=== PATIENT | female | born 1965 | race African-American/Black ===

== ENCOUNTER 2024-08-24 10:46 | Day surgery (SDC) | payer BC ==
[2024-08-24] VITALS (7 sets, daily range): BP systolic 107–117; BP diastolic 70–79; PULSE 57–71; RESP 12–18; TEMP 97.3
[2024-08-24 10:51] LABS: BASOPHILS # (AUTO) 0.08 K/uL (0.00-0.20); BASOPHILS % (AUTO) 1.4 % (0.0-5.0); EOSINOPHILS # (AUTO) 0.09 K/uL (0.00-0.70); EOSINOPHILS % (AUTO) 1.6 % (0.0-8.0); HEMATOCRIT 32.8 % (36-48); IMMATURE GRANULOCYTE ABSOLUTE 0.02 K/uL (0-1); LYMPHOCYTES # (AUTO) 2.1 K/uL (1.0-4.8); LYMPHOCYTES % (AUTO) 38.2 % (21.0-51.0); MEAN CORPUSCULAR HEMOGLOBIN 29.1 pg (27.0-33.0); MEAN CORPUSCULAR HGB CONC 33.8 g/dL (32.0-36.0); MEAN CORPUSCULAR VOLUME 85.9 fL (79-99); MONOCYTES # (AUTO) 0.3 K/uL (0.1-1.0); MONOCYTES % (AUTO) 4.8 % (3.0-13.0); NEUTROPHILS % (AUTO) 53.6 % (40.0-77.0); PLATELET COUNT (AUTO) 284 K/uL (130-400); RED BLOOD CELL COUNT(AUTO) 3.82 MIL/uL (4.00-5.50); RED CELL DISTRIBUTION WIDTH 14.1 % (11.0-15.5); WHITE BLOOD COUNT (AUTO) 5.6 K/uL (4.8-10.8)
[2024-08-24 11:00] LABS: INR 1.02 (0.85-1.15); PROTHROMBIN TIME 10.8 SEC (9.6-11.6)
[2024-08-24 11:02] LABS: PARTIAL THROMBOPLASTIN TIME 26.8 SEC (26.3-35.5)
[2024-08-24] MEDS ORDERED: FENTanyl CITRate PF 50 MCG/1 ML 2ML VIAL ONE (12:12)
[2024-08-24] MEDS ORDERED: MIDAZOLAM HCL 1 MG/ML 2ML VIAL ONE ×2 (12:12→12:32)
--- NOTE | 2024-08-24 12:50 | NUR ---
CT GD RT ILIAC BONE MARROW BX TOLERATED PROCEDURE. PERFORMED BY DR MARINELLI. PUNCTURE SITE TO RT ILIAC. SPECIMEN REMOVED AND SENT TO LAB. END OF PROCEDURE AT 1240. DRESSING DRY AND INTACT. NO BLEEDING NOTED. REPORT GIVEN TO Nayana CASSIDY RN. TRANSPORTED TO DAY PT ROOM 9. A&O. DENIES PAIN.
--- NOTE | 2024-08-24 14:58 | NUR ---
Full and complete discharge instructions given to Patient and Family both verbally and in writing. Explained Bone marrow Biopsy procedure precautions and follow up. Discussed site care at length. Instructed to keep bandage on for 24 hours and observe for any sign of infection. All questions answered. PIV removed with catheter tip intact. Home with Friend W/C to POV at designed time.
--- NOTE | 2024-08-25 13:32 | PRN ---
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 Muller PROCEDURE DETAILS: Informed consent was obtained after discussion of the risks, benefits and alternatives to this treatment. Sterile Prep: All elements of maximal sterile barrier technique, including hand hygiene and cutaneous antisepsis were used. A time-out was performed prior to the procedure. Anesthesia type: Patient received intravenous titrated doses of Versed and fentanyl administered by radiology nursing personnel with continuous monitoring of the oxygen saturation, cardiac status, respiratory status. 10 mL of 1% lidocaine subcutaneous and periosteal was also administered. Estimated blood loss: Less than 5 cc. TECHNIQUE: Imaging guidance for intervention: Fluoroscopy and CT with permanent image storage Intraprocedural or immediate post-procedural complications: None The patient was placed prone on the CT table. The lower back was prepped and draped in a sterile fashion. 1% lidocaine was used for local anesthesia. CT was used to localize an appropriate entry site. Using CT and fluoroscopy guidance, a 13-gauge bone marrow biopsy needle was advanced into the right posterior iliac crest and confirmatory image was obtained. Approximately 12 cc of marrow was aspirated and the needle was gently advanced to obtain a core biopsy. The needle was removed and hemostasis achieved with manual compression. Sterile dressing was applied. Completion CT was obtained. The patient tolerated the procedure well. No immediate complication. FINDINGS: CT demonstrated adequate position of the needle. Completion CT demonstrated no evidence of hematoma. IMPRESSION: CT and fluoroscopy guided bone marrow biopsy. Specimen sent for analysis. DENISE MULLER DO Aug 25, 2024 13:32
--- NOTE | 2024-08-25 13:35 | HMCIMG ---
CT BX BONE MARROW ASP/BX IR COMPARISON: None TECHNIQUE: Multiple sequential axial images of the CT BX BONE MARROW ASP/BX IR INDICATION: MONOCLONAL GAMMOPATHY STRETCH BOX TENDER: Dr. Muller PROCEDURE DETAILS: Informed consent was obtained after discussion of the risks, benefits and alternatives to this treatment. Sterile Prep: All elements of maximal sterile barrier technique, including hand hygiene and cutaneous antisepsis were used. A time-out was performed prior to the procedure. Anesthesia type: Patient received intravenous titrated doses of Versed and fentanyl administered by radiology nursing personnel with continuous monitoring of the oxygen saturation, cardiac status, respiratory status. 10 mL of 1% lidocaine subcutaneous and periosteal was also administered. Estimated blood loss: Less than 5 cc. TECHNIQUE: Imaging guidance for intervention: Fluoroscopy and CT with permanent image storage Intraprocedural or immediate post-procedural complications: None The patient was placed prone on the CT table. The lower back was prepped and draped in a sterile fashion. 1% lidocaine was used for local anesthesia. CT was used to localize an appropriate entry site. Using CT and fluoroscopy guidance, a 13-gauge bone marrow biopsy needle was advanced into the right posterior iliac crest and confirmatory image was obtained. Approximately 12 cc of marrow was aspirated and the needle was gently advanced to obtain a core biopsy. The needle was removed and hemostasis achieved with manual compression. Sterile dressing was applied. Completion CT was obtained. The patient tolerated the procedure well. No immediate complication. FINDINGS: CT demonstrated adequate position of the needle. Completion CT demonstrated no evidence of hematoma. IMPRESSION: CT and fluoroscopy guided bone marrow biopsy. Specimen sent for analysis.
== END 2024-08-24 15:40 | disposition home or self-care (01) ==
LOC: RAH 10:46
PROVIDERS: ATTEND Internal Medicine Hematology & Oncology
DX: D47.2 Monoclonal gammopathy (principal); D57.3 Sickle-cell trait; E78.00 Pure hypercholesterolemia, unspecified; R73.03 Prediabetes; J30.2 Other seasonal allergic rhinitis; H04.129 Dry eye syndrome of unspecified lacrimal gland; R35.1 Nocturia; R53.83 Other fatigue; Z79.899 Other long term (current) drug therapy; Z88.8 Allergy status to other drugs, medicaments and biological substances
CPT/HCPCS: 85025; 85610; 85730; 88184; 88185; 88189; 36415; 88374; 77012; 38222; A4223 ×3; J3010; J2250 ×2; C1830; A4215; A4222; A4221; A4663; A4216; A4606; 99152; 99153; G0500